=== PATIENT | male | born 1975 ===

== ENCOUNTER 2023-12-27 23:01 | Outpatient (REF) | payer MEDICAID, SELFPAY ==
[2023-12-27 23:51] LABS: Abs Immature Grans 0.03 10^3/uL (0.0-0.06); Absolute Basophil Count 0.05 10^3/uL (0.0-0.2); Absolute Eosinophil Count 0.18 10^3/uL (0.0-0.7); Absolute Lymphocyte Count 3.07 10^3/uL (1.2-3.4); Absolute Monocyte Count 0.61 10^3/uL (0.1-0.8); Absolute Neutrophil Count 4.99 10^3/uL (1.2-6.7); Basophils % 0.6 %; HCT 44.4 % (40.0-50.0); HGB 14.8 g/dL (13.5-17.5); Immature Grans % 0.3 %; Lymphocytes % 34.4 %; MCHC 33.3 % (32.0-36.0); MCV 96 fL (80-95); MPV 11.7 fL (8.0-11.0); Monocytes % 6.8 %; Neutrophils % 55.9 %; Platelet Count 280 10^3/uL (130-400); RBC 4.63 10^6/uL (4.36-5.78); RDW 12.4 % (11.8-14.1); RDW-SD 44.3 fL; WBC 8.93 10^3/uL (4.4-10.8)
[2023-12-28 00:03] LABS: ALT 37 U/L (16-63); AST 19 U/L (15-37); Albumin 4.1 g/dL (3.4-5.0); Alkaline Phosphatase 92 U/L (46-116); Anion Gap 11.1 mmol/L (3-11); BUN 17 mg/dL (7-18); Bilirubin, Total 0.57 mg/dL (0.2-1.0); CO2 25.9 mmol/L (21.0-32.0); Calcium 9.3 mg/dL (8.5-10.1); Calculated LDL 167 mg/dL (<100); Chloride 105 mmol/L (98-107); Cholesterol 241 mg/dL (<200); Estimated GFR 91.69 (mL/min/1.73m2); Glucose 90 mg/dL (74-106); HDL Cholesterol 55 mg/dL (40-60); Potassium 4.3 mmol/L (3.5-5.1); Sodium 142 mmol/L (136-145); Total Protein 7.2 g/dL (6.4-8.2); Triglyceride 97 mg/dL (<150)
[2023-12-28 00:10] LABS: C-Reactive Protein 0.58 mg/dL (<or=0.5)
== END 2023-12-27 23:02 | disposition home or self-care (01) ==
LOC: NCHCN 23:01
PROVIDERS: Visit Provider Family Medicine
DX: L08.9 Local infection of the skin and subcutaneous tissue, unspecified (principal)
CPT/HCPCS: 80053; 80061; 85025; 86140

== ENCOUNTER 2024-02-19 02:30 | Outpatient (CLI) | payer MEDICAID, SELFPAY ==
--- NOTE | 2024-02-19 | DI.CT_ITS ---
Exam(s) CT NECK W EXAM: CT NECK W INDICATION: CERVICAL LYMPHADENOPATHY, LOCALIZED ENLARGED LYMPH NODES, R59.0. COMPARISON: No exams were available for comparison TECHNIQUE: FINDINGS: VISUALIZED PARANASAL SINUSES: There is a retention cyst in the right maxillary sinus floor which chelsea ures 1.6 x 1.5 x 1.2 cm no associated fluid level in the sinus. Other paranasal sinuses are clear, a s are the visualized mastoid air cells. NASOPHARYNX: Unremarkable ORODENTAL: Unremarkable. OROPHARYNX: Unremarkable. No masses evident. HYPOPHARYNX: Unremarkable. Valleculae and epiglottis and aryepiglottic folds appear normal. VOCAL CORDS: Adducted as apparently the patient held his breath during image acquisition. Therefore difficult to assess accurately. However, no obvious asymmetry. THYROID GLAND: Unremarkable. Normal size and no obvious nodules. SALIVARY GLANDS: Unremarkable. No significant findings in the parotid and submandibular glands. LYMPH NODES: There are few slightly prominent bilateral sub platysmal lymph nodes anterior to the sub mandibular glands. Largest of these measures 1.4 by 0.8 cm. There is no supraclavicular adenopathy evident. There is a skin marker over the posterior right side of the neck noted. There is a small benign-appea ring subjacent lymph node evident in the subcutaneous tissues. Similar findings also seen on the oppo site-left side. There is no gross lymphadenopathy in the neck. VASCULAR: No significant stenosis at the carotid bifurcations VISUALIZED LUNG APICES: No confluent infiltrates nor nodules. IMPRESSION: 1. There is slightly prominent sub platysmal lymph nodes bilaterally, measuring up to 14 x 8 mm. On the posterior right side of the neck subjacent to the skin marker is a small benign-appearing lymp h node measuring 1.1 x 0.5 cm. There is no gross lymphadenopathy. No evidence of abnormal fluid collection. 2. No other significant focal findings in the soft tissues of the neck. 3. Post inflammatory retention cyst incidentally noted in the right maxillary sinus, not associated with a fluid level therein. RADIATION DOSE DELIVERED: 389.18mGy.cm Total DLP DATA REPOSITORY: All CT scans at this facility are submitted to the National Radiology Data Registry (NRDR) Dose Index Registry (DIR) with the [employer] ([employer]). RADIATION OPTIMIZATION: All CT scans at this facility use at least one of these dose optimization te chniques: automated exposure control; mA and/or kV adjustment per patient size (includes targeted exa ms where dose is matched to clinical indication); or iterative reconstruction.
[2024-02-19] MEDS: Omnipaque 350 MG/ML 100 ML BTL IJ (08:25)
[2024-02-19] MEDS: Normal Saline - Diluent 50 ML VIAL IJ (08:26)
== END 2024-02-19 02:50 ==
LOC: DI 02:30
PROVIDERS: PCP Family Medicine; Visit Provider Family Medicine
DX: R59.0 Localized enlarged lymph nodes (principal)
CPT/HCPCS: 70491; J3490